=== PATIENT | female | born 1965 | race Caucasian/White ===

== ENCOUNTER 2018-03-03 07:00 | Day surgery (SDC) | payer OTHER ==
[2018-02-28 10:54] VITALS: BMI 22.9
[2018-03-03 07:48] VITALS: BP 153/67; TEMP 98.6
--- NOTE | 2018-03-03 09:13 | RAD ---
CERVICAL SPINE MYELOGRAM LUMBAR SPINE MYELOGRMA: DATE: 03/03/18. COMPARISON: 11/01/10. HISTORY: Cervical and lumbar radiculopathy. FINDINGS: Informed consent was obtained prior to the procedure. Life Support Technician frontal and lateral imaging of the lumbar spine demonstrates a mild degree of levoscoliosis. T here is prominent disk space narrowing at L2-3, L3-4, and L4-5 with degenerative end plate change. T here is also disk space narrowing at the L5-S1 level with posterior osteophyte. There is multilevel bilateral facet hypertrophy. Cervical spine gear nicker imaging demonstrates anterior diskectomy and fusio n hardware at the c4-5 level . There is also posterior fusion hardware at C4-5. There is multilevel cervical disk osseous fusion including C4-5, C5-6, and C6-7 with exaggerated kyphosis. The patient was placed on the fluoroscopic table in the oblique prone position and the skin overlying the lower lumbar spine was prepped and draped in normal sterile fashion. With intermittent fluoroscopic guidance, a 22-gauge spinal needle was advanced into the thecal sac at the L4-5 level and removal of the stylette yields clear cerebrospinal fluid. Approximately 0 cc of Isovue 300 was then injected, filling the thecal sac and outlining nerve roots of the cauda equina. The patient's head was tilted down to extend some of the contrast media into the cervical region. Th e needle was removed. The patient tolerated the procedure well and was sent to the CT scanner for ce rvical spine and lumbar spine CT myelogram. IMPRESSION: Successful cervical spine and lumbar spine myelogram with CT myelogram to follow. Postoperative and degenerative changes within the cervical and lumbar spine as detailed above. POS: PAZ
--- NOTE | 2018-03-03 10:19 | CT ---
CT MYELOGRAM OF THE LUMBAR SPINE: DATE: 03/03/18. COMPARISON: None. HISTORY: Lumbar radiculopathy. TECHNIQUE: Serial axial CT imaging is obtained at 2.5 mm intervals from lower thoracic spine through inferior as pect of sacrum with intrathecal contrast media. Coronal and sagittal reformatted imaging obtained. FINDINGS: There is a mild degree of degenerative levoscoliosis within the lumbar spine. There is no significant anterolisthesis or retrolisthesis seen. T11-12: Disk bulge present with partial effacement of ventral thecal sac and mild central canal sten osis. Mild bilateral facet hypertrophy with mild bilateral neural foraminal stenosis. T12-L1: No significant central canal or neural foraminal stenosis. L1-2: Mild disk space narrowing. Mild facet hypertrophy bilaterally. No significant central canal or neural foraminal stenosis. L2-3: There is prominent disk space narrowing and degenerative end plate change with marked end plat e degenerative sclerotic change laterally on the right. There is lateral right-sided osteophyte form ation. There is bilateral facet hypertrophy. There is moderate-severe right neural foraminal stenos is. Disk-osteophyte complex causes moderate central canal stenosis. There is mild left neural ash inal stenosis. L3-4: There is disk space narrowing and degenerative end plate change with bilateral facet hypertrop hy, prominent on the right. No central canal stenosis. Mild left neural foraminal stenosis and mode rate/severe right neural foraminal stenosis. L4-5: There is disk space narrowing and degenerative end plate change with a disk-osteophyte complex . There is bilateral facet hypertrophy. There is severe left neural foraminal stenosis and moderate right neural foraminal stenosis. The patient is status post laminectomy with no central canal steno sis. L5-S1: Disk space narrowing and degenerative end plate change with disk-osteophyte complex and vacuu m disk. Mild central canal stenosis. Prominent bilateral facet hypertrophy with osteophyte encroach ment on the neural foramina and moderate/severe bilateral neural foraminal stenosis, left greater sissy n right. There is a prominent perineural sleeve cyst in the region of the S2 neural foramen on the right conta ining intrathecal contrast media. There is no acute fracture. No worrisome lytic or blastic bone lesion. The imaged retroperitoneal structures demonstrate no acute findings. IMPRESSION: Prominent multilevel degenerative change within the lumbar spine with associated central canal and ne ural foraminal stenosis as documented above. POS: PAZ
--- NOTE | 2018-03-03 10:30 | CT ---
CERVICAL SPINE CT MYELOGRAM: Date: 03/03/18 COMPARISON: 11/01/10. HISTORY: Cervical stenosis, prior cervical spine surgery, upper extremity radiculopathy. TECHNIQUE: Following the intrathecal administration of Isovue-300, serial axial CT imaging is obtained at 2.5 mm intervals from skull base through upper chest. Coronal and sagittal reformatted imaging obtained. FINDINGS: The craniocervical junction appears intact. There is prominent degenerative change present at the C1-2 articulation with interspace narrowing, long bchondral sclerosis, and subchondral cystic change, especially on the right, markedly progressed sinc e the prior exam. There is prominent degenerative pannus formation posterior to the dens. There is os teophyte encroachment in the region of the C1-2 neural foramen bilaterally, right greater than left, severe and new when compared to the prior examination. On the axial imaging, there is mild mass effect on the ventral aspect of the thecal sac right of midl ine secondary to prominent new degenerative pannus formation. C2-3: There is disc space narrowing with bilateral facet and uncovertebral osteophyte formation. There is m ild left and moderate/severe right neural foraminal stenosis. There is mild central canal stenosis. C3-4: There is disc space narrowing with bilateral facet hypertrophy, left greater than right. Moderate lef t and mild right neural foraminal stenosis. Mild central canal stenosis. C4-5: Anterior diskectomy and fusion hardware present. Posterior bilateral pedicle screws with vertically o riented interlocking rods noted. Facet and uncovertebral osteophyte formation noted bilaterally, righ t greater than left. No significant central canal stenosis. Mild bilateral neural foraminal stenosis. C5-6: Osseous fusion at intervertebral disc level noted. Right-sided fusion screw traverses the right-sided facet joint. Mild right neural foraminal stenosis. No central canal or left neural foraminal stenosis. C6-7: Hemilaminectomy noted posteriorly on the left. There is osseous fusion at the intervertebral disc. No osseous cause of significant central canal and neural foraminal stenosis. C7-T1: Anterolisthesis of C7 on T1 noted, measuring approximately 6.0 mm, new. There is severe bilateral fac et hypertrophy, worsened, right greater than left, with osteophyte encroachment on bilateral neural f oramina and severe bilateral neural foraminal stenosis. There is pseudo disc bulge on the basis of an terolisthesis, with effacement of the thecal sac, and a moderate degree of associated central canal s tenosis. T1-2: Severe bilateral neural foraminal stenosis on the basis of facet hypertrophy. Disc osteophyte complex causes moderate central canal stenosis. T2-3: Prominent bilateral facet hypertrophy with moderate/severe bilateral neural foraminal stenosis, left greater than right. Mild central canal stenosis on the basis of disc osteophyte complex. T3-4: Severe right-sided neural foraminal stenosis on the basis of facet hypertrophy. Disc bulge causes mil d central canal stenosis. No worrisome lytic or blastic bone lesion. Posterior cerclage wire overlies posterior elements at C5, C6, and C7. IMPRESSION: Prominent multilevel degenerative change with associated areas of central canal and neural foraminal stenosis as documented above. Findings have progressed significantly since the 2011 exam as detailed above. POS: PAZ
[2018-03-03] MEDS ORDERED: Iopamidol-M 300 61% 15 ML VIAL ONE (11:03)
== END 2018-03-03 09:50 | disposition home or self-care (01) ==
LOC: RAD 07:00
PROVIDERS: ATTEND Neurological Surgery
DX: M48.061 Spinal stenosis, lumbar region without neurogenic claudication (principal); M48.02 Spinal stenosis, cervical region; M47.22 Other spondylosis with radiculopathy, cervical region; M47.26 Other spondylosis with radiculopathy, lumbar region
CPT/HCPCS: 62305; 72126; 72132

== ENCOUNTER 2018-04-22 14:00 | Inpatient (IN) | payer OTHER ==
[2018-04-28] MEDS ORDERED: PHENYLEPHRINE-NS 100 MCG/ML 10 ML SYRINGE ONE (09:42)
[2018-04-28] MEDS ORDERED: Glycopyrrolate 0.2 MG/ML 5 ML SYRINGE ONE (09:42)
[2018-04-28] MEDS ORDERED: Ondansetron HCl/PF 4 MG/2 ML Vial ONE (09:42)
[2018-04-28] MEDS ORDERED: PROPOFOL 200 MG/20 ML VIAL ONE (09:42)
[2018-04-28] MEDS ORDERED: ePHEDrine/0.9% NaCl/PF SYRINGE 50 mg/10 ml ONE (09:42)
[2018-04-28] MEDS ORDERED: Dexamethasone 20 MG/5 ML VIAL ONE (09:42)
[2018-04-28] MEDS ORDERED: PROVENTIL INHALER 6.7 G (200 INHALATIONS) ONE (09:42)
[2018-04-28] MEDS ORDERED: Lidocaine 1% PF 5 ML VIAL ONE (09:42)
[2018-04-28] MEDS ORDERED: CEFAZOLIN/Water 2 GM/20 ML SYRINGE ONE (10:14)
[2018-04-28] MEDS ORDERED: Levofloxacin 500 mg/D5W 100 ml Premix Bag ONE (10:15)
[2018-04-28] MEDS ORDERED: Clindamycin/D5W 900 mg/50 ml Premix Bag ONE (10:15)
[2018-04-28] MEDS ORDERED: Midazolam HCl 2 mg/2 ml Vial ONE (10:48)
[2018-04-28] MEDS ORDERED: Sodium Chloride 0.9% 10 ML ONE (12:33)
[2018-04-28] MEDS ORDERED: Bacitracin Zinc Ointment 30 gm TUBE ONE (12:33)
[2018-04-28] MEDS ORDERED: Fentanyl 100 MCG/2 ML VIAL ONE ×2 (13:15→16:14)
[2018-04-28] MEDS ORDERED: Albuterol Sulfate HFA (OR ONLY) ONE (14:01)
[2018-04-28] MEDS ORDERED: HYDROmorphone 0.5 MG/0.5 ML SYRINGE ONE ×2 (16:00→16:06)
[2018-04-28] MEDS ORDERED: Acetaminophen 500 MG TAB PO PRN (16:35)
[2018-04-28] MEDS ORDERED: Promethazine 25 MG TAB PO PRN (16:37)
[2018-04-28] MEDS ORDERED: Milk Of Magnesia 30 ML UDCUP PO PRN (16:37)
[2018-04-28] MEDS ORDERED: Mag-Al 1200 mg/1200 mg/30 ML UDCUP PO PRN (16:37)
[2018-04-28] MEDS ORDERED: HYDROcodone/Acetaminophen 10/325 mg Tablet PO PRN (16:37)
[2018-04-28] MEDS ORDERED: Morphine 4 MG/ML Carpuject SLOW IVP PRN (16:37)
[2018-04-28] MEDS ORDERED: diphenhydrAMINE 50 MG/ML VIAL IVP PRN (16:37)
[2018-04-28] MEDS ORDERED: traMADol HCl 50 MG TAB PO PRN ×2 (16:37)
[2018-04-28] MEDS ORDERED: Promethazine HCl 25 MG/ML VIAL IM PRN (16:37)
[2018-04-28] MEDS ORDERED: Ondansetron HCl/PF 4 MG/2 ML Vial IVP PRN (16:37)
[2018-04-28] MEDS ORDERED: Promethazine HCl 12.5 MG SUPP PR PRN (16:37)
[2018-04-28] MEDS ORDERED: diphenhydrAMINE 25 MG CAP PO PRN (16:37)
[2018-04-28 17:12] VITALS: BMI 25.1
[2018-04-28] MEDS: Sodium Chloride 0.9% 1,000 ML IV SCH (17:12)
[2018-04-28] MEDS: Morphine 4 MG/ML VIAL SLOW IVP PRN ×2 (18:34→21:34)
--- NOTE | 2018-04-28 19:38 | OP ---
DATE OF PROCEDURE: 04/28/2018 SURGEON: Johnny Soni M.D. DRY CLEANER HAND: Mihir Benson PA-C. PROCEDURE: Exploration spinal fusion, anterior cervical discectomy C7-T1, interbody arthrodesis, int ravertebral biomechanical device, local morselized autograft, demineralized bone matrix, anterior tit anium instrumentation C7-T1; posterior approach and exploration spinal fusion, removal of hardware, p osterior laminectomy C7 and T1, posterolateral arthrodesis, lateral mass screws, demineralized bone m atrix, local morselized autograft C7-T1. PROCEDURE IN DETAIL: The patient brought to the operating room and intubated. She was positioned long pine with the head in modest extension on a gel-filled donut. Incision was made in the right precerv ical area and dissecting medial to the sternocleidomastoid muscle. We identified the anterior cervic al spine and was cleared this with the C7-T1 level as we explored the fusion above and was quite heber d. We placed distraction across C7-T1 in size intervertebral disk and placed distraction across this interspace. The disc itself was removed and the spinal cord completely decompressed. The bony endp lates were decorticated for the purpose of arthrodesis and appropriately sized intravertebral biomech anical PEEK device was brought into the field, filled with demineralized bone matrix and local morsel ized autograft, and tapped into place securely at C7-T1. Next, an anterior plate was brought in the field and secured to C7-T1 using two 14 mm screws at each level. The wound was then extensively irri gated, immaculate hemostasis was secured, and the wound closed in anatomic layers over a drain. The patient was then fixed in the toi head of biology rolled in the prone position on gel-filled chest rolls with the head fixed in a neutral position. Posterior cervical region was exposed, exposing th e C7-T1 region. At the inferior aspect of C7 was an obvious intralaminar wire that extended up to th e C6 level. We explored C6-C7 and was found to be solid, and we removed the wire without difficulty. The wire was certainly lying over the C7 region and so no laminectomy could be performed with this in place. Next, we performed a complete T1 and complete C7 laminectomy, completely decompressing the C7-T1 interspace. Next, lateral mass screws were placed at right C7, right T1. A aron was secured b etween the screws, connected by nuts which were final tightened. The wound was extensively irrigated , immaculate hemostasis was secured. A combination of demineralized bone and local morselized autogr aft was laid over the laminar and posterolateral surfaces for the purpose of arthrodesis. Vancomycin powder was applied and the wound was closed in anatomic layers.
[2018-04-28] MEDS: Bupropion 150 MG SR TAB PO SCH (20:31)
[2018-04-28] MEDS: DULoxetine 60 MG CAP PO SCH (20:31)
[2018-04-28] MEDS: Clindamycin/D5W 900 MG in Premix Bag 1 BAG IVPB SCH (20:31)
[2018-04-28] MEDS: METHadone HCl 10 MG TAB PO SCH (20:31)
[2018-04-28] MEDS: HYDROcodone/Acetaminophen 10/325 mg Tablet PO PRN (22:56)
[2018-04-29] MEDS: Morphine 4 MG/ML VIAL SLOW IVP PRN (01:02)
[2018-04-29] MEDS: Sodium Chloride 0.9% 1,000 ML IV SCH ×2 (05:54→14:36)
[2018-04-29] MEDS: Clindamycin/D5W 900 MG in Premix Bag 1 BAG IVPB SCH ×3 (05:58→20:57)
[2018-04-29] MEDS: HYDROcodone/Acetaminophen 10/325 mg Tablet PO PRN ×3 (06:01→16:43)
--- NOTE | 2018-04-29 07:42 | PRG ---
DATE OF SERVICE: 04/29/2018 SUBJECTIVE: The patient is a 53-year-old female status post C7-T1 anterior and posterior d ecompression and fusion. She is postop day #1. Overnight, the patient had only 30 mL of output from the SONIA drain. We will plan to remove today. The patient has had some pain control issues overnight requiring IV pain medication intermittently. She reports that she is feeling better this morning, b ut I believe she would benefit from additional night with us for pain control and advancing mobilizat ion and diet. She is ambulating short distance to the bedside commode and tolerating a regular diet. We will continue to monitor her progress and possibly plan for discharge in the morning.
[2018-04-29] MEDS: METHadone HCl 10 MG TAB PO SCH ×2 (08:04→20:58)
[2018-04-29] MEDS: Bupropion 150 MG SR TAB PO SCH ×2 (08:04→20:57)
[2018-04-29] MEDS: DULoxetine 60 MG CAP PO SCH ×2 (08:05→20:58)
[2018-04-29] MEDS: tiZANidine HCl 4 MG TAB PO PRN ×3 (08:05→21:14)
[2018-04-30] MEDS: HYDROcodone/Acetaminophen 10/325 mg Tablet PO PRN ×2 (03:15→08:53)
[2018-04-30] MEDS: Clindamycin/D5W 900 MG in Premix Bag 1 BAG IVPB SCH (05:58)
[2018-04-30 08:23] VITALS: BP 115/68; TEMP 98
[2018-04-30] MEDS: METHadone HCl 10 MG TAB PO SCH (08:48)
[2018-04-30] MEDS: DULoxetine 60 MG CAP PO SCH (08:49)
[2018-04-30] MEDS: Bupropion 150 MG SR TAB PO SCH (08:50)
[2018-04-30] MEDS: tiZANidine HCl 4 MG TAB PO PRN (10:03)
--- NOTE | 2018-04-30 13:45 | DIS ---
HOSPITAL COURSE: This is a 53-year-old female status post C7-T1 anterior and posterior dec ompression and fusion for spondylolisthesis and cervical stenosis. Today is postoperative day #2. T he patient is doing much better. Her pain is well controlled with p.o. medications, she is toleratin g regular diet, and voiding appropriately. She has been ambulatory throughout the department. Her d ressings remained dry and her anterior incision is soft. We will plan to dismiss to home later today . I have discussed home care precautions and reasons to reach out to us sooner. Patient was prescri bed hydrocodone, Zanaflex, Keflex.
== END 2018-04-30 11:17 | disposition home or self-care (01) | DRG 455 ==
LOC: SURG B 04-28 09:18 → T4-A 04-28 16:31
PROVIDERS: ADMIT Neurological Surgery; ATTEND Neurological Surgery
PROC: 0RG40A0 Fusion of Cervicothoracic Vertebral Joint with Interbody Fusion Device, Anterior Approach, Anterior Column, Open Approach (ICD-10-PCS; principal; 2018-04-28)
PROC: 0RG1071 Fusion of Cervical Vertebral Joint with Autologous Tissue Substitute, Posterior Approach, Posterior Column, Open Approach (ICD-10-PCS; 2018-04-28)
PROC: 0RB50ZZ Excision of Cervicothoracic Vertebral Disc, Open Approach (ICD-10-PCS; 2018-04-28)
DX: M47.13 Other spondylosis with myelopathy, cervicothoracic region (principal); M48.03 Spinal stenosis, cervicothoracic region; I10 Essential (primary) hypertension; F32.9 Major depressive disorder, single episode, unspecified
CPT/HCPCS: 76001; 80048; 85027; 93005; 93010; A4216; C1713; C1768; C1776; G8978-GP-CK; G8979-GP-CI; J0131; J1100; J1170; J1956; J2001; J2250; J2270; J2405; J2704; J3010; J3370; J3490

== ENCOUNTER 2018-04-25 15:10 | Outpatient (CLI) | payer OTHER ==
[2018-04-25 15:38] LABS: Hemoglobin 13.6 g/dL (12.0-16.0); Mean Corpuscular HGB CONC 33.2 g/dL (32.0-36.0); Mean Corpuscular Hemoglobin 31.7 pg (27.0-31.0); Mean Corpuscular Volume 95.5 fL (78.0-98.0); Mean Platelet Volume 6.4 fL (7.4-10.4); Platelet Count 340 thou/uL (130-400); RBC Distribution Width 12.6 % (11.5-14.5); Red Blood Cell (RBC) Count 4.29 mill/uL (4.20-5.40); White Blood Cell (WBC) Count 7.3 thou/uL (4.8-10.8)
[2018-04-25 15:55] LABS: Anion Gap 13 mmol/L (10-20); BUN (Urea Nitrogen) 18 mg/dL (9.8-20.1); Calc. Creatinine Clearance 0 mL/min (70-130); Calcium 9.1 mg/dL (7.8-10.44); Carbon Dioxide 30 mmol/L (22-29); Chloride 102 mmol/L (98-107); Estimated GFR-MDRD 53; Glucose 92 mg/dL (70-105); Potassium 4.6 mmol/L (3.5-5.1); Sodium 140 mmol/L (136-145)
== END 2018-04-25 15:11 | disposition home or self-care (01) ==
LOC: LABBT 15:10
PROVIDERS: ATTEND Neurological Surgery
DX: Z01.818 Encounter for other preprocedural examination (principal); M47.892 Other spondylosis, cervical region
CPT/HCPCS: 80048; 85027; 93005; 93010

== ENCOUNTER 2019-11-11 14:06 | Outpatient (CLI) | payer OTHER ==
--- NOTE | 2019-11-11 14:45 | RAD ---
LEFT HIP 2 VIEWS: Date: 11/11/2019 HISTORY: Left hip pain. FINDINGS: There is severe joint space narrowing, particular pronounced along the superior aspect of the joint s pace. There is subchondral cystic formation of the femoral head associated with this. There is fairly prominent head and neck ring osteophyte changes. Femoral head maintains a relatively normal spherica l contour. IMPRESSION: Severe arthritic changes of the hip. POS: TPC
== END 2019-11-11 14:07 | disposition home or self-care (01) ==
LOC: RAD 14:06
PROVIDERS: ATTEND Nurse Practitioner Family
DX: M25.552 Pain in left hip (principal); M16.12 Unilateral primary osteoarthritis, left hip
CPT/HCPCS: 80307; 80326; 80331; 80334; 80337; 80341; 80344; 80346; 80348; 80353; 80354; 80355; 80357; 80358; 80359; 80360; 80361; 80364; 80365; 80366; 80367; 80368; 80370; 80371; 80372; 80377

== ENCOUNTER 2020-05-05 13:15 | Inpatient (IN) | payer OTHER ==
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
[2020-07-06 14:14] LABS: Bacteria/HPF None Seen HPF (None Seen); Bilirubin Negative (Negative); Blood, Urine Negative (Negative); Clarity Clear (Clear); Glucose, Urine (Dipstick) Normal (Negative); Ketone, Urine Negative (Negative); Leukocyte Negative Leu/uL (Negative); Nitrite Negative (Negative); Protein, Urine (Dipstick) Negative (Neg-Trace); RBC/HPF 0-3 HPF (0-3); Specific Gravity, Urine 1.012 (1.002-1.036); Squamous Epithelial 0-3 HPF (0-3); Urobilinogen Normal mg/dL (Less than 2); WBC/HPF 0-3 HPF (0-3)
[2020-07-06 14:18] LABS: #Eosinphils 0.5 thou/uL (0.0-0.7); #Lymphocytes 1.9 thou/uL (1.20-3.40); #Monocytes 0.5 thou/uL (0.11-0.59); #Neutrophils 3.9 thou/uL (1.40-6.50); %Basophils 0.5 % (0.0-1.0); %Eosinophils 7.8 % (0.0-10.0); %Monocytes 6.9 % (0.0-10.0); %Neutrophils 56.8 % (42.0-75.0); Hemoglobin 14.3 g/dL (12.0-16.0); Mean Corpuscular HGB CONC 32.7 g/dL (32.0-36.0); Mean Corpuscular Hemoglobin 32.2 pg (27.0-31.0); Mean Corpuscular Volume 98.5 fL (78.0-98.0); Mean Platelet Volume 7.8 fL (7.4-10.4); Platelet Count 279 thou/uL (130-400); RBC Distribution Width 12.3 % (11.5-14.5); Red Blood Cell (RBC) Count 4.44 mill/uL (4.20-5.40); White Blood Cell (WBC) Count 6.9 thou/uL (4.8-10.8)
[2020-07-06 14:29] LABS: Anion Gap 15 mmol/L (10-20); BUN (Urea Nitrogen) 21 mg/dL (9.8-20.1); Calc. Creatinine Clearance 0 mL/min (70-130); Calcium 9.5 mg/dL (7.8-10.44); Carbon Dioxide 30 mmol/L (22-29); Chloride 99 mmol/L (98-107); Estimated GFR-MDRD 58; Glucose 102 mg/dL (70-105); INR-International Normal Ratio 0.9; Potassium 4.8 mmol/L (3.5-5.1); Prothrombin Time 12.5 sec (12.0-14.7); Sodium 139 mmol/L (136-145)
[2020-07-07 12:47] LABS: SARS-CoV-2 MS2 Positive; SARS-CoV-2 N Gene Negative; SARS-CoV-2 S Gene Negative; SARS-CoV-2 by NAA Not Detected (NotDetected); SARS-CoV-2 orf1ab Negative
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
[2020-07-08 12:28] VITALS: BMI 21.2
[2020-07-11] MEDS ORDERED: Vancomycin 1 GM/200 ML BAG ONE (07:40)
[2020-07-11] MEDS ORDERED: Tranexamic Acid 1,000 MG/10 ML VIAL ONE ×3 (07:40→11:52)
[2020-07-11] MEDS ORDERED: Levofloxacin 500 mg/D5W 100 ml Premix Bag ONE (07:40)
[2020-07-11] MEDS ORDERED: Sodium Chloride 0.9% 100 ML ONE ×2 (07:40→08:15)
[2020-07-11] MEDS ORDERED: Midazolam HCl 2 mg/2 ml Vial ONE (08:24)
[2020-07-11] MEDS ORDERED: Fentanyl 100 MCG/2 ML VIAL ONE ×2 (08:25→09:06)
[2020-07-11] MEDS ORDERED: Lidocaine 2% Jelly 5 ML TUBE ONE (09:06)
[2020-07-11] MEDS ORDERED: Acetaminophen 325 MG TAB PO PRN ×2 (09:11→13:18)
[2020-07-11] MEDS ORDERED: Ropivacaine 0.2% HCl/PF 20 ML ONE (09:11)
[2020-07-11] MEDS ORDERED: Phenylephrine 10 MG/ML VIAL ONE (09:12)
[2020-07-11] MEDS ORDERED: Zolpidem Tartrate 5 MG TAB PO PRN ×2 (09:15→13:18)
[2020-07-11] MEDS ORDERED: diphenhydrAMINE 50 MG/ML VIAL IVP PRN (09:15)
[2020-07-11] MEDS ORDERED: traMADol HCl 50 MG TAB PO PRN ×3 (09:15→13:18)
[2020-07-11] MEDS ORDERED: Bupivacaine 0.25% 10 ML VIAL EPIDURAL PRN (09:15)
[2020-07-11] MEDS ORDERED: Promethazine HCl 25 MG/ML VIAL IM PRN ×2 (09:15→10:45)
[2020-07-11] MEDS ORDERED: Naloxone HCl 0.4 mg/ml Vial IV PRN (09:15)
[2020-07-11] MEDS ORDERED: Hydrocerin (Eucerin) Cream 120 gm Jar TOP PRN (09:15)
[2020-07-11] MEDS ORDERED: HYDROcodone/Acetaminophen 5/325 mg Tablet PO PRN (09:15)
[2020-07-11] MEDS ORDERED: diphenhydrAMINE 50 MG/ML VIAL IM PRN (09:15)
[2020-07-11] MEDS ORDERED: Promethazine HCl 25 MG SUPP PR PRN (09:15)
[2020-07-11] MEDS ORDERED: diphenhydrAMINE 25 MG CAP PO PRN ×2 (09:15→13:18)
[2020-07-11] MEDS ORDERED: Naloxone HCl 0.4 mg/ml Vial IVP PRN (09:15)
[2020-07-11] MEDS ORDERED: Ondansetron PF 4 MG/2 ML Vial IVP PRN ×2 (09:15→13:18)
[2020-07-11] MEDS ORDERED: Promethazine HCl 25 MG/ML VIAL SLOW IVP PRN ×2 (10:45→13:18)
[2020-07-11] MEDS ORDERED: Ondansetron HCl/PF 4 MG/2 ML Vial IVP PRN (10:45)
[2020-07-11] MEDS ORDERED: Tranexamic Acid 1,000 MG in Sodium Chloride 0.9% 100 ML IVPB SCH ×2 (11:45→13:18)
--- NOTE | 2020-07-11 12:12 | RAD ---
EXAM: 2 views of the left hip HISTORY: Left hip arthroplasty COMPARISON: 11/11/2019 FINDINGS: 2 views of the left hip shows the patient is status post left hip arthroplasty without jluis hardware lucency or fracture. Air in the soft tissues is from recent surgery. IMPRESSION: Status post left hip arthroplasty without evidence of complication.
[2020-07-11] MEDS ORDERED: HYDROcodone/Acetaminophen 10/325 mg Tablet PO PRN ×2 (13:18)
[2020-07-11] MEDS ORDERED: Ketorolac Tromethamine 30 MG/ML VIAL IVP SCH (13:18)
[2020-07-11] MEDS ORDERED: Fentanyl 100 MCG/2 ML VIAL SLOW IVP PRN ×2 (13:18)
[2020-07-11] MEDS ORDERED: Mirtazapine 15 MG TAB PO PRN (13:18)
[2020-07-11] MEDS ORDERED: Lidocaine 1.5% w/Epi 1:200K 30 ML VIAL (Epid Use) ONE (14:08)
[2020-07-11] MEDS ORDERED: METHadone HCl 10 MG TAB PO SCH (15:00)
[2020-07-11] MEDS: Ketorolac Tromethamine 30 MG/ML VIAL IVP SCH ×3 (15:20→23:58)
[2020-07-11] MEDS: Sodium Chloride 0.9% 1,000 ML IV SCH (15:21)
[2020-07-11] MEDS: HYDROcodone/Acetaminophen 5/325 mg Tablet PO PRN (17:23)
[2020-07-11] MEDS: Bupropion 150 MG SR TAB PO SCH (20:37)
[2020-07-11] MEDS: Aspirin 81 mg Enteric Coated Tablet PO SCH (20:37)
[2020-07-11] MEDS: DULoxetine 60 MG CAP PO SCH (20:37)
[2020-07-11] MEDS ORDERED: Vancomycin 1 GM in Premix Bag 1 BAG IVPB SCH (21:00)
[2020-07-12] MEDS: Sodium Chloride 0.9% 1,000 ML IV SCH ×3 (01:00→21:31)
[2020-07-12] MEDS: fentaNYL Citrate/PF 500 MCG, Bupivacaine 10 ML in Sodium Chloride 0.9% 80 ML EPIDURAL SCH ×2 (03:53→19:03)
[2020-07-12 05:28] LABS: Hemoglobin 9.6 g/dL (12.0-16.0); Mean Corpuscular Hemoglobin 30.9 pg (27.0-31.0); Mean Corpuscular Volume 98.1 fL (78.0-98.0); White Blood Cell (WBC) Count 9.5 thou/uL (4.8-10.8)
[2020-07-12 05:29] LABS: Mean Corpuscular HGB CONC 31.5 g/dL (32.0-36.0); Mean Platelet Volume 7.5 fL (7.4-10.4); Platelet Count 166 thou/uL (130-400); RBC Distribution Width 12.3 % (11.5-14.5)
[2020-07-12] MEDS: Ketorolac Tromethamine 30 MG/ML VIAL IVP SCH ×4 (06:38→23:49)
[2020-07-12] MEDS: DULoxetine 60 MG CAP PO SCH ×2 (08:36→21:30)
[2020-07-12] MEDS: Senokot S 8.6-50 MG TAB PO SCH ×2 (08:36→21:30)
[2020-07-12] MEDS: Ferrous Gluconate 324 MG TAB PO SCH ×2 (08:37→17:01)
[2020-07-12] MEDS: Aspirin 81 mg Enteric Coated Tablet PO SCH ×2 (08:37→21:30)
[2020-07-12] MEDS: Multivitamin W/ Minerals 1 TAB PO SCH (08:37)
--- NOTE | 2020-07-12 08:53 | OP ---
DATE OF PROCEDURE: 07/11/2020 AUTOMOTIVE BRAKE ADJUSTER: Salvatore Gold PA-C. The project construction assistant manager co-surgeon was present through the entire procedure and was responsible for providing exposure, tissue retraction, and any necessary limb or tissue manipulation required to obtain necessary reduction or hardware placement. The project construction assistant manager co-surgeon also provided bleeding control, tissue closure, and suturing in conjunction with the primary surgeon. ANESTHESIA: General plus epidural. PREOPERATIVE DIAGNOSIS: Degenerative arthritis, left hip. POSTOPERATIVE DIAGNOSIS: Degenerative arthritis, left hip. PROCEDURE PERFORMED: Left total hip replacement with uncemented [place] Trident II Tritanium acetabular shell 56 mm with X3 polyethylene insert and uncemented [place] Accolade II femoral stem size #6 with 132-degree neck angle trunnion and 36 mm - 5 mm neck length delta ceramic femoral head. DESCRIPTION OF PROCEDURE: After satisfactory anesthesia was induced in supine position, sequential compression device was placed on the nonoperative leg throughout the procedure. The patient was placed in the lateral decubitus position and this position held with hip positioning device. The patient's left hip was then prepped and draped in routine sterile fashion. The hip was approached through a curvilinear incision centered over the greater trochanter, carried down through the subcutaneous tissues. Bleeding points were controlled with Bovie cautery. IT band and gluteal fascia was split in line with the skin incision. A direct lateral approach to the hip joint was accomplished by dividing the anterior third of the gluteus medius and minimus tendons with Bovie cautery and reflecting this as a single flap anteromedially along with the vastus lateralis. Anterior capsulectomy was performed. The hip was dislocated anteriorly. There was marked degenerative arthritis of the hip with large areas of exposed bone and also acetabular cyst. Femoral neck was osteotomized with an oscillating saw using a trial prosthesis as a guide. Acetabulum was exposed and cleaned of all soft tissue debris and rim osteophytes. It was reamed down to bleeding subchondral bone to a total of 56 mm. Acetabular cyst was curetted out. It was felt that a 56 mm Trident II outer shell could be placed in a press-fit fashion. A small amount of morcellized bone graft obtained from reaming the acetabulum and was placed in the cyst and permanent acetabular shell was then hammered in position. There was good fit and stability of the outer shell. The permanent X3 polyethylene liner was then snapped in position and the proximal femur exposed. It was opened with a box osteotome and then rasped in sequence to accept a #6 Accolade II femoral rasp. Trial reduction with 132-degree neck angle trunnion and the -5 mm neck length 36 mm hip femoral head gave appropriate size, fit, and stability. The hip was again dislocated anteriorly and the trial components were removed. The permanent #6 Accolade II femoral stem was then hammered into position. There was again good fit and stability. The permanent 36 mm diameter -5 mm neck length delta ceramic femoral head was then placed on the trunnion and the hip again reduced and found to be stable. The wound was copiously irrigated with pulsatile lavage. The abductors were repaired with interrupted #2 Vicryl. IT band and gluteal fascia were closed with interrupted #2 Vicryl and running #2 Quill. Subcutaneous tissues were closed with 0 Quill suture and the skin closed with running subcuticular 3-0 Monoderm and SurgiSeal skin adhesive. Sterile dressing was applied. The patient was turned to supine position and a pillow placed between her legs. She was awakened and taken to the recovery room in stable condition. A sequential compression device was applied to the operated leg. There were no apparent intraoperative complications. The estimated blood loss was 200 mL. Job ID: [id number] MTDD
[2020-07-12] MEDS ORDERED: FLU VACC QS2020-21(6MOS UP)/PF 60 MCG/0.5 ML SYRINGE IM ONE (09:00)
[2020-07-12] MEDS: Bupropion 150 MG SR TAB PO SCH ×2 (11:21→21:30)
[2020-07-12] MEDS ORDERED: Mirtazapine 15 MG TAB PO PRN (15:57)
[2020-07-13] MEDS: Ketorolac Tromethamine 30 MG/ML VIAL IVP SCH (05:22)
[2020-07-13] MEDS: Sodium Chloride 0.9% 1,000 ML IV SCH ×2 (05:27→09:54)
[2020-07-13 05:50] LABS: Hemoglobin 8.9 g/dL (12.0-16.0); Mean Corpuscular HGB CONC 32.2 g/dL (32.0-36.0); Mean Corpuscular Hemoglobin 32.1 pg (27.0-31.0); Mean Corpuscular Volume 99.6 fL (78.0-98.0); Mean Platelet Volume 7.8 fL (7.4-10.4); Platelet Count 164 thou/uL (130-400); RBC Distribution Width 12.3 % (11.5-14.5); Red Blood Cell (RBC) Count 2.76 mill/uL (4.20-5.40)
[2020-07-13] MEDS: Multivitamin W/ Minerals 1 TAB PO SCH (09:53)
[2020-07-13] MEDS: Senokot S 8.6-50 MG TAB PO SCH (09:53)
[2020-07-13] MEDS: Bupropion 150 MG SR TAB PO SCH (09:53)
[2020-07-13] MEDS: Aspirin 81 mg Enteric Coated Tablet PO SCH (09:53)
[2020-07-13] MEDS: Ferrous Gluconate 324 MG TAB PO SCH (09:53)
[2020-07-13] MEDS: DULoxetine 60 MG CAP PO SCH (09:53)
[2020-07-13] MEDS: HYDROcodone/Acetaminophen 5/325 mg Tablet PO PRN (12:35)
[2020-07-13 13:00] VITALS: BP 104/63; TEMP 98.3
== END 2020-07-13 14:35 | disposition home or self-care (01) | DRG 470 ==
LOC: SURG A 07-11 07:04 → SJJU 07-11 15:19
PROVIDERS: ADMIT Orthopaedic Surgery; ATTEND Orthopaedic Surgery
PROC: 0SRB04A Replacement of Left Hip Joint with Ceramic on Polyethylene Synthetic Substitute, Uncemented, Open Approach (ICD-10-PCS; principal; 2020-07-08)
DX: M16.0 Bilateral primary osteoarthritis of hip (principal); G89.29 Other chronic pain; M54.9 Dorsalgia, unspecified; I10 Essential (primary) hypertension; Z20.828 Contact with and (suspected) exposure to other viral communicable diseases; F32.9 Major depressive disorder, single episode, unspecified; M54.2 Cervicalgia; Z88.0 Allergy status to penicillin; Z79.899 Other long term (current) drug therapy; Z79.1 Long term (current) use of non-steroidal anti-inflammatories (NSAID); Z28.21 Immunization not carried out because of patient refusal
CPT/HCPCS: 36415; 80048; 81001; 85025; 85027; 85610; 86850; 86900; 86901; 87081; 87086; 87635; 94640; J1885; J1956; J2001; J2250; J2370; J2795; J3010; J3370; J3490; J7620; U0003

== ENCOUNTER 2020-07-06 07:57 | Outpatient (CLI) | payer OTHER ==
--- NOTE | 2020-07-06 17:33 | EKG ---
Test Reason : PREOP Blood Pressure : / mmHG Vent. Rate : 073 BPM Atrial Rate : 073 BPM P-R Int : 144 ms QRS Dur : 082 ms QT Int : 420 ms P-R-T Axes : 032 057 071 degrees QTc Int : 462 ms Normal sinus rhythm Normal ECG Confirmed by DR. Jose Carlos CORTEZ ([id number]) on 07/06/2020 5:32:50 PM Referred By: YANDY Confirmed By:DR. Jose Carlos CORTEZ
== END 2020-07-06 07:58 | disposition home or self-care (01) ==
LOC: LABBT 07:57
PROVIDERS: ATTEND Orthopaedic Surgery
DX: Z01.810 Encounter for preprocedural cardiovascular examination (principal); M16.12 Unilateral primary osteoarthritis, left hip
CPT/HCPCS: 93005; 93010

== ENCOUNTER 2020-07-26 07:15 | Inpatient (IN) | payer OTHER ==
[2020-07-26] MEDS ORDERED: Cefepime 2 GM VIAL ONE (07:56)
[2020-07-26] MEDS ORDERED: Vancomycin 1 GM/200 ML BAG ONE (07:56)
[2020-07-26 08:07] LABS: #Lymphocytes 1.1 thou/uL (1.20-3.40); #Monocytes 0.9 thou/uL (0.11-0.59); %Basophils 0.2 % (0.0-1.0); %Eosinophils 0.2 % (0.0-10.0); %Lymphocytes 6.2 % (21.0-51.0); %Monocytes 4.7 % (0.0-10.0); %Neutrophils 88.8 % (42.0-75.0); Hemoglobin 12.4 g/dL (12.0-16.0); Mean Corpuscular HGB CONC 33.7 g/dL (32.0-36.0); Mean Corpuscular Hemoglobin 32.7 pg (27.0-31.0); Mean Corpuscular Volume 97.1 fL (78.0-98.0); Mean Platelet Volume 6.7 fL (7.4-10.4); Platelet Count 372 thou/uL (130-400); RBC Distribution Width 12.8 % (11.5-14.5); Red Blood Cell (RBC) Count 3.78 mill/uL (4.20-5.40); White Blood Cell (WBC) Count 18.1 thou/uL (4.8-10.8)
[2020-07-26 08:29] LABS: ALT (SGPT) 20 U/L (8-55); AST (SGOT) 30 U/L (5-34); Albumin 3.7 g/dL (3.5-5.0); Alkaline Phosphatase 142 U/L (40-110); Anion Gap 14 mmol/L (10-20); BUN (Urea Nitrogen) 18 mg/dL (9.8-20.1); Bilirubin, Total 0.5 mg/dL (0.2-1.2); Calc. Creatinine Clearance 0 mL/min (70-130); Calcium 9.5 mg/dL (7.8-10.44); Carbon Dioxide 29 mmol/L (22-29); Chloride 97 mmol/L (98-107); Estimated GFR-MDRD 44; Globulin 3.7 g/dL (2.4-3.5); Glucose 108 mg/dL (70-105); Lipase 7 U/L (8-78); Potassium 3.8 mmol/L (3.5-5.1); Protein, Total 7.4 g/dL (6.0-8.3); Sodium 136 mmol/L (136-145)
[2020-07-26 09:19] LABS: Bacteria/HPF 2+ HPF (None Seen); Bilirubin Negative (Negative); Blood, Urine 2+ (Negative); Clarity Clear (Clear); Glucose, Urine (Dipstick) Normal (Negative); Ketone, Urine Negative (Negative); Leukocyte Negative Leu/uL (Negative); Nitrite Negative (Negative); Protein, Urine (Dipstick) 30 mg/dL (Neg-Trace); RBC/HPF 21-50 HPF (0-3); Specific Gravity, Urine 1.038 (1.002-1.036); Squamous Epithelial 0-3 HPF (0-3); WBC/HPF 0-3 HPF (0-3); pH, Urine 5.5 (5.0-9.0)
--- NOTE | 2020-07-26 12:46 | RAD ---
2 views of the left hip: 07/26/2020 COMPARISON: 07/11/2020 radiograph, CT at [facility] 07/25/2020 HISTORY: Recent surgery, fluid collection around hip FINDINGS: There is a stable left hip arthroplasty with no evidence for hardware failure. No acute fra cture or dislocation. No subcutaneous gas. There is probable mild soft tissue swelling lateral to the proximal left femur. IMPRESSION: No acute osseous abnormality. Recent CT examination performed 07/25/2020 at [facility] demonstr ates a nonspecific fluid collection lateral and anterior to the femoral head component, not well assessed on this exam. This may be related to infection. On that CT this fluid collection measured 6. 8 x 5.8 x 10.4 cm. Recommend orthopedic consultation.
--- NOTE | 2020-07-26 14:15 | CON ---
DATE OF CONSULTATION: 07/26/2020 REQUESTING PHYSICIAN: Dr. Ton Dominguez. CONSULTING PHYSICIAN: Justo Duarte MD REASON FOR CONSULTATION: Concern for infected left hip prosthesis. HISTORY OF PRESENT ILLNESS: This is a 55-year-old female, who recently underwent left total hip replacement on 07/11/[address] Reese. The patient did well in the operative suite. She was discharged home and has done very well in the postoperative period until yesterday when she developed a fever at home. She states her fever at home was 100.8. She was also nauseous and had some abdominal cramping and some dysuria. She presented to the [place] [facility] at that time for full febrile workup. She was COVID tested and flu tested. These were both negative. She also underwent CT imaging of the chest, abdomen, pelvis, which were available for review today. These showed a loculated fluid collection lateral to the left total hip prosthesis. We were consulted for this reason. Currently at bedside, the patient denies any hip pain. She states that her hip has done very well and she is very pleased with that postoperatively. She has had no redness and no drainage from the incision. The only symptoms she is experiencing include dysuria with some lower abdominal discomfort as well as some nausea. She was recommended for transfer to our facility last night, however, due to the cost of the ambulance ride, she declined. She was given some Levaquin p.o. last night before going home. She then returned to our facility today for concerns about her symptoms and also continued fever. PAST MEDICAL HISTORY: Significant for total hip replacement on July 11, 2020; depression; chronic pain, which is controlled by Dr. Muhammad. PAST SURGICAL HISTORY: Includes hip surgery; appendectomy; hysterectomy; cervical surgery, of note which became infected postoperatively. SOCIAL HISTORY: The patient lives at home alone. Denies smoking or drug or alcohol use. FAMILY HISTORY: Reviewed and noncontributory. REVIEW OF SYSTEMS: Ten-point review of systems conducted and otherwise negative except for stated above. PHYSICAL EXAMINATION: VITAL SIGNS: Current vital signs including blood pressure 97/62, pulse of 79, temperature of 98, and O2 saturation of 95 on room air. GENERAL: The patient is awake and alert. She appears to not be feeling well at this time. She is very pleasant and cooperative with exam. HEENT: Head is normocephalic and atraumatic. NECK: Supple. Trachea midline. LUNGS: Breathing is nonlabored. ABDOMEN: Shows her belly to be soft and nontender in the upper quadrants. She does have some nonspecific suprapubic tenderness to palpation. Positive bowel sounds present. EXTREMITIES: All 4 extremities were evaluated. The left hip does show a surgical wound. This is clean and dry. There is no drainage. No erythema. Edges are well approximated. Range of motion evaluation of the left hip shows active and passive range of motion both intact without any signs of pain or discomfort elicited. Distal neurovascular status is intact. Evaluation of the right lower extremity shows an erythematous area to the prepatellar bursa. There is a palpable fluid collection in the bursa. This is mildly tender to palpation. This is not tight. This does not extend over the joint. She does have full range of motion actively in her knee. Distal neurovascular status is intact. LABORATORY DATA: From today's visit were reviewed. She was noted to have an elevated white blood cell count at 18.1, hemoglobin 12.4, hematocrit 36.7, platelet count of 372. ESR elevated at 88. C-reactive protein elevated at 21. Chemistry panel also shows her creatinine elevated at 1.26. The urinalysis today shows 2+ blood, negative for leukocyte esterase, 21 to 50 red blood cells, and 2+ bacteria with 0 to 3 white blood cells. X-ray of the AP pelvis today finds a stable left hip arthroplasty with no evidence for hardware failure. No acute fracture or dislocation of the left proximal femur. Overall impression of this x-ray does read no acute osseous abnormality. Recent CT examination performed on 07/25/2020, at [facility] in [place] demonstrates a nonspecific fluid collection lateral and anterior to the femoral head component, not well assessed on this current exam. Fluid collection measured 6.8 x 5.8 x 10.4 cm. ASSESSMENT: The patient with sepsis criteria and recent left total hip arthroplasty 2 weeks ago. PLAN: At this time, it does not appear that her hip appears infected. She has active and passive range of motion without any signs of discomfort or pain. Her incision is well healed without any signs of infection. I do believe this is likely coming from either her urine or a septic prepatellar bursitis. Either way, she has met sepsis criteria, and we will recommend that she be admitted to the Medicine Service for IV antibiotics and further observation. We will keep an eye on her throughout her hospital stay. We anticipate the erythema to her right prepatellar region will lessen with IV antibiotics; however, if it does not, it could possibly warrant surgical intervention with an I and D at that time. We will be following on this patient. Job ID: [id number]
--- NOTE | 2020-07-26 15:24 | HP ---
PRIMARY CARE PHYSICIAN: Ramiro Webb. CHIEF COMPLAINT: Fever. HISTORY OF PRESENT ILLNESS: This is a 55-year-old female with a history of high blood pressure and chronic musculoskeletal complaints. She has had neck surgery with revisions for an infection of the hardware and then most recently two weeks ago the patient had a total hip replacement done here by Dr. Reese. She did well after the hip surgery and had relief from her chronic hip pain and was doing well at home. Prior to the surgery, she did have development of infection or cellulitis on her right foot that resolved with antibiotics from Podiatry before her surgery. Yesterday, the patient developed onset of fever up to 100.8. She also felt some nausea and just felt really bad and then later in the day she started developing some mild dysuria and some cramping of her bladder when peeing. The patient went into [facility]. There, she was diagnosed with possible urinary tract infection. They did do a CT scan of her hip at that time, which showed a nonspecific fluid collection lateral and anterior to the femoral head component of the hip replacement, fluid collection measuring 6.8 x 5.8 x 10.4 cm. This was concerning for possibility of infection, so the patient was recommended to be transferred to [facility]. She was concerned about the cost of the ambulance transport and did not want to go into the hospital yesterday. She was given oral Levaquin at that time and she eventually left against medical advice. Today, she had persistence of her low-grade fevers and feeling bad and she also noted some swelling anterior to leg below her knee with some streaking redness from it, so she came into the ER here. In the ER, she was found to be initially tachycardic with blood pressure in the 90 systolic. She also had an elevated white blood cell count, elevated ESR, elevated CRP, and had white cells and bacteria in her urine. Orthopedics was consulted by the ER. They did review her imaging and did an exam and determined that the fluid collection was most likely a hematoma. However, they were concerned about the possibility of current infection that she is having seeding her prosthesis, because she has had problems like this before, so they recommended IV antibiotic treatment. The patient was given a dose of cefepime and vancomycin in the emergency room along with some IV fluids and she is no longer having any tachycardia. Blood pressures have improved to 130 systolic. She has not had any pain at this time. REVIEW OF SYSTEMS: CONSTITUTIONAL: See HPI. EYES: No double vision or blurred vision. ENT: No congestion, drainage, or sore throat. CARDIOVASCULAR: No chest pain, no palpitations, or racing heart. PULMONARY: No coughing, wheezing, or shortness of breath. GASTROINTESTINAL: See HPI. No vomiting. No abdominal pain currently. No diarrhea or constipation. GENITOURINARY: See HPI. No hematuria. MUSCULOSKELETAL: No significant muscle aches or joint pains. SKIN: The patient does have the swollen bursitis with redness and streaks of red running up from it and running up around her knee and then down the entire front side of her carver. No other skin lesions noted. NEUROLOGIC: No numbness, tingling, or focal weakness. PAST MEDICAL HISTORY: 1. Chronic neck and back pain. 2. Previous hypertension, though she denies current problems with this. PAST SURGICAL HISTORY: 1. 11 cervical spine surgeries. 2. Hysterectomy. 3. Appendectomy. 4. Left total hip replacement. PAST PSYCHIATRIC HISTORY: Depression. SOCIAL HISTORY: No tobacco, alcohol, or illicit drug use. She lives at home with her son. She is currently a full code. Should she be incapacitated, her son, Nicolás [place] and his sister would be her medical decision makers. FAMILY MEDICAL HISTORY: Father with heart attack and mother with stroke. ALLERGIES: PENICILLIN CAUSED GENERALIZED SKIN RASH SEVERAL DAYS AGO WHEN SHE WAS BEING TREATED FOR THE NECK INFECTION. CURRENT MEDICATIONS: 1. Aspirin 81 mg twice a day. 2. Bupropion extended release 150 mg twice a day. 3. Cymbalta 60 mg twice a day. 4. Mart 10/325 one tablet every 6 hours as needed for pain. 5. Combivent 2 puffs inhaled four times a day. 6. Methadone 10 mg 3 times a day. 7. Mirtazapine 15 mg as needed for sleep. 8. Naproxen as needed for pain. PHYSICAL EXAMINATION: VITAL SIGNS: Blood pressure 132/57, pulse 72, respirations 16, temperature 98.3, O2 saturation 96% on room air. GENERAL: This is a well-developed, well-nourished white female, in no acute distress. HEENT: Pupils are equal, round, and reactive to light. Oropharynx clear without lesions, erythema, or exudate. NECK: Supple. No lymphadenopathy. No thyroid nodules or enlargement. No JVD. HEART: Regular rate and rhythm. No murmurs, rubs, or gallops. LUNGS: Clear to auscultation bilaterally. No wheezes, crackles, or rhonchi. ABDOMEN: Soft, mild tenderness to palpation over the bladder area. No other tenderness to palpation. No guarding or rebound tenderness. No hepatosplenomegaly or other masses. Normoactive bowel sounds. EXTREMITIES: No clubbing, cyanosis, or edema. The patient does have a large fluid-filled infrapatellar bursa over her patellar ligament and proximal tibia. This is red and hot and has a few streaks of redness going around the knee and going down the carver as well. SKIN: No other rashes besides the above mentioned findings. NEUROLOGIC: The patient moves all extremities equally. No facial droop. PSYCHIATRIC: Alert and oriented x3. Normal mood and affect. LABORATORY DATA: CBC with a white blood cell count of 18,000 with 88% neutrophils. Hemoglobin, hematocrit, and platelets are all normal. Complete metabolic panel is notable for chloride of 97, creatinine of 1.26, which is a new elevation since her surgery, glucose of 108. Alkaline phosphatase 142. No other abnormalities. Lactic acid was negative x1. C-reactive protein is elevated at 21. ESR is elevated at 88. Urinalysis shows 2+ blood, 20 to 50 red blood cells, 0 to 3 white blood cells, and 2+ bacteria. IMAGING STUDIES: I did review the x-ray films of the left hip done in the emergency room and in radiologist's report, there is a left hip prosthesis in place which appears well aligned. There is no evidence of fluid collection on the x-ray done here today. EKG done in the emergency room shows normal sinus rhythm, 75 beats per minute. There is no ST-segment changes. There are no QRS abnormalities. There is no prolonged QT. Normal EKG. ASSESSMENT: 1. Sepsis source most likely urine or septic prepatellar bursitis. We will continue patient's cefepime and vancomycin dosed renally. We will watch blood and urine cultures collected here today and given the patient was given Levaquin yesterday, then they may be negative. We will try to obtain any cultures that were sent from the [facility]. I will also ask Dr. Manzo to consult on the case. 2. Urinary tract infection. Currently on cefepime. We will watch cultures. 3. Prepatellar bursitis, possibly septic with evidence of cellulitis. We will continue IV antibiotics and we will monitor for improvement. If there is no improvement, orthopedics is considering surgical debridement. 4. History of chronic pain. We will resume the patient's home pain medications. 5. History of hypertension, currently with normal blood pressure. 6. Deep venous thrombosis prophylaxis with the patient on Lovenox subcu daily. 7. Acute renal failure, mild, likely due to sepsis. We will monitor for improvement with IV hydration and will renally dose medications. 8. Gastrointestinal prophylaxis. Put the patient on Pepcid twice a day. 9. Code status. The patient is a full code. Should she be incapacitated, her son and daughter would be her medical decision makers. Job ID: [id number]
[2020-07-26] MEDS ORDERED: HYDROcodone/Acetaminophen 10/325 mg Tablet PO PRN (16:09)
[2020-07-26] MEDS ORDERED: Acetaminophen 650 MG Suppository PR PRN (16:09)
[2020-07-26] MEDS ORDERED: Guaifenesin DM 100-10/5 ML UDCUP PO PRN (16:09)
[2020-07-26] MEDS ORDERED: Acetaminophen 325 MG TAB PO PRN (16:09)
[2020-07-26] MEDS ORDERED: Mirtazapine 15 MG TAB PO PRN (16:09)
[2020-07-26] MEDS ORDERED: Ondansetron ODT 4 MG TAB PO PRN (16:09)
[2020-07-26] MEDS ORDERED: Ondansetron PF 4 MG/2 ML Vial IVP PRN (16:09)
[2020-07-26 16:29] VITALS: BMI 20.5
[2020-07-26] MEDS: Bupropion 150 MG SR TAB PO SCH (20:52)
[2020-07-26] MEDS: Aspirin 81 mg Enteric Coated Tablet PO SCH (20:52)
[2020-07-26] MEDS: DULoxetine 60 MG CAP PO SCH (20:52)
[2020-07-26] MEDS: Famotidine 20 MG TAB PO SCH (20:52)
[2020-07-26] MEDS: METHadone HCl 10 MG TAB PO SCH (21:10)
--- NOTE | 2020-07-26 23:45 | CON ---
DATE OF CONSULTATION: 07/26/2020 REASON FOR CONSULTATION: Fever and dysuria, findings in the left hip arthroplasty site. HISTORY OF PRESENT ILLNESS: This 55-year-old who had a left hip replacement just a few days ago without any major issues and subsequently developed temperature elevation up to 100.8 with nausea, had some mild dysuria and then she was diagnosed with possible UTI in [facility]. A CT of the hip was done, which showed nonspecific fluid collection measuring 6.8 x 5.8 x 10.4. She was then transferred over here because of the concern with the hip complication. She did not want to go in the hospital because of fears of the financial cost of ambulance transport. She was given oral Levaquin and left against medical advice. Because of persistence of fever, she also noted swelling in the left knee anterior aspect with streaking, so she came to the emergency room, had a systolic of 90, a little bit tachycardic. WBC count was elevated, so she was started on broad-spectrum coverage and Orthopedic Surgery consulted. They felt that the fluid in the hip was most likely hematoma. Currently, she is actually looking pretty good. She does not have any urinary symptoms. No headaches, visual symptoms, sore throat, odynophagia, or dysphagia. No back pain. No respiratory symptoms. No abdominal pain or diarrhea and she has quite a bit of pain in the right knee anterior aspect. No other joint symptoms. MEDICAL HISTORY: Neck operations with fusion, low back operation with fusion, hypertension, hysterectomy, appendectomy, and left hip replacement. SOCIAL HISTORY: Lives in [place] with son. Never smoker. No alcoholic beverage use. FAMILY HISTORY: Coronary artery disease and CVA. ALLERGIES: PENICILLIN. MEDICATIONS: Med list at this time, she is on; 1. Inhalers. 2. Aspirin. 3. Bupropion. 4. Cefepime. 5. Duloxetine. 6. Hydrocodone. 7. Vancomycin. PHYSICAL EXAMINATION: VITAL SIGNS: Temperature 97.9, BP 130/80, saturating 93 on room air. GENERAL: Appears in no distress. SKIN: Shows area of erythema and swelling right at the right prepatellar region. The left hip surgery incision appears healed with no erythema or tenderness or swelling or drainage. No lymphadenopathy. HEENT: Ocular movements conjugate. Oral cavity normal. NECK: Supple. LUNGS: Symmetric. Clear breath sounds. HEART: S1 and S2. Regular rate. No S3 or S4. ABDOMEN: Soft. Not distended or tender. No ascites. No bladder distention. EXTREMITIES: Right knee range of motion is somewhat preserved, although it is painful because of the prepatellar inflammatory process. The prepatellar bursa is swollen and tender and has a cystic consistency to it. She has onychomycosis, onychodystrophy in pretty much all toenails. Pulses are 1+ in dorsalis pedis. No edema. NEUROLOGIC: Nonfocal including cognitive function. LABORATORY DATA: White cell count 18,000, hemoglobin 12.4, platelets 372 with 88% neutrophils. Sodium 136, creatinine 1.26, GFR 44 with glucose 108. Liver profile normal. Alkaline phosphatase 142. CRP 21, albumin 3.7. Urinalysis with 0 to 3 wbc's, 21 to 50 rbc's. IMAGING STUDIES: There is a hip x-ray from this admission with no osseous abnormality. Nonspecific fluid collection anterior to the femoral head component. She had a chest, abdomen, and pelvis CT in April, which did not show any acute findings. ASSESSMENT: Recent left hip replacement with now fever leukocytosis and prepatellar bursitis. After informed consent and topical antisepsis, I obtained a sample from the bursa fluid with an 18-gauge needle and about 2 mL of purulent looking fluid was submitted for cultures and crystal analysis. Continue current antimicrobial therapy and then submit also chlamydia and GC PCR in urine, hepatitis C serology, HIV, and RPR. It unclear the reason for the dysuria in the face of absence of pyuria. An infectious bursitis appears to be the most likely scenario. Infection of the L hip arthroplasty is less likely in view of the appearance of incision and the absence of pain on rom although, if there is truly infectious pre- patellar bursitis, bacteremia could potentially seed the L hip site. Job ID: [id number] [facility]
[2020-07-27 05:48] LABS: #Basophils 0.1 thou/uL (0.0-0.2); #Eosinphils 0.3 thou/uL (0.0-0.7); #Lymphocytes 2.1 thou/uL (1.20-3.40); %Basophils 0.4 % (0.0-1.0); %Eosinophils 2.5 % (0.0-10.0); %Lymphocytes 16.9 % (21.0-51.0); %Monocytes 8.1 % (0.0-10.0); %Neutrophils 72.1 % (42.0-75.0); Hemoglobin 10.1 g/dL (12.0-16.0); Mean Corpuscular HGB CONC 32.3 g/dL (32.0-36.0); Mean Corpuscular Hemoglobin 31.8 pg (27.0-31.0); Mean Corpuscular Volume 98.5 fL (78.0-98.0); Mean Platelet Volume 6.7 fL (7.4-10.4); Platelet Count 307 thou/uL (130-400); RBC Distribution Width 12.5 % (11.5-14.5); Red Blood Cell (RBC) Count 3.18 mill/uL (4.20-5.40); White Blood Cell (WBC) Count 12.5 thou/uL (4.8-10.8)
[2020-07-27 06:10] LABS: Anion Gap 10 mmol/L (10-20); BUN (Urea Nitrogen) 15 mg/dL (9.8-20.1); Calc. Creatinine Clearance 67 mL/min (70-130); Calcium 8.7 mg/dL (7.8-10.44); Carbon Dioxide 29 mmol/L (22-29); Chloride 104 mmol/L (98-107); Estimated GFR-MDRD 61; Glucose 86 mg/dL (70-105); Potassium 3.9 mmol/L (3.5-5.1); Sodium 139 mmol/L (136-145)
--- NOTE | 2020-07-27 07:37 | PDOC.HOSPP ---
- Subjective Encounter Date: 07/27/20 Encounter Time: 07:35 Subjective: Patient complaining of a diffuse headache, 6/10 in severity, and nausea. No vision changes or vomiting. Does not suffer from headaches/migraines at baseline. Has not had any PRN meds yet. States she got to her room late last night and only able to eat a salad. Did not get much rest. Has not had any further spikes in her temperature. S/p I&D of right knee by Dr. Manzo, awaiting cultures. Has been able to walk to the bathroom independently without the help of her walker. Otherwise feels well, better than when she first came in. - Objective Vital Signs & Weight: Vital Signs (12 hours) Temp Pulse Resp BP Pulse Ox 07/27/20 07:15 97.7 F 86 20 127/72 92 L 07/27/20 04:37 97.5 F L 65 16 98/61 95 07/26/20 23:30 98.5 F 78 16 122/72 87 L Weight Weight 143 lb 3.2 oz I&O: 07/26/20 07/27/20 07/28/20 06:59 06:59 06:59 Intake Total 480 Balance 480 Result Diagrams: 07/27/20 05:08 07/27/20 05:08 Hospitalist ROS - Review of Systems Constitutional: reports: other (headache, diffuse) Eyes: denies: pain, vision change, conjunctivae inflammation, eyelid inflammation, redness, other Respiratory: denies: cough, dry, shortness of breath, hemoptysis, SOB with excertion, pleuritic pain, sputum, wheezing, other Cardiovascular: denies: chest pain, palpitations, orthopnea, paroxysmal noc. dyspnea, edema, light headedness, other Gastrointestinal: reports: nausea. denies: vomiting, abdominal pain, diarrhea, constipation Genitourinary: denies: dysuria, frequency, incontinence, hematuria, retention, other Musculoskeletal: reports: other (right knee discomfort, improved) - Medication Medications: Active Medications Generic Name Dose Route Start Last Admin Trade Name Freq PRN Reason Stop Dose Admin Aspirin 81 mg 07/26/20 21:00 07/26/20 20:52 Aspirin 81 Mg Enteric Coated Tablet PO 81 mg BID JOSE G Administration Bupropion HCl 150 mg 07/26/20 21:00 07/26/20 20:52 Bupropion 150 Mg Sr Tab PO 150 mg BID JOSE G Administration Duloxetine HCl 60 mg 07/26/20 21:00 07/26/20 20:52 Duloxetine 60 Mg Cap PO 60 mg BID JOSE G Administration Famotidine 20 mg 07/26/20 21:00 07/26/20 20:52 Famotidine 20 Mg Tab PO Not Given BID JOSE G Methadone HCl 10 mg 07/26/20 21:00 07/26/20 21:10 Methadone Hcl 10 Mg Tab PO 10 mg TID JOSE G Administration Pneumococcal 13-Valent Conj Vacc 0.5 ml 07/27/20 16:45 07/26/20 17:02 Prevnar 13-Sylvia Conj/Pf 0.5 Ml Syringe IM 07/27/20 16:46 Not Given .ONCE ONE - Exam General Appearance: NAD, awake alert Eye: PERRL, anicteric sclera ENT: normocephalic atraumatic, no oropharyngeal lesions Neck: supple, no lymphadenopathy Heart: RRR, normal peripheral pulses Respiratory: CTAB, no wheezes, no rales, no ronchi, normal chest expansion Gastrointestinal: soft, non-tender, non-distended, normal bowel sounds, no guarding, no rigidity Extremities - other findings: Rt knee with slight warmth & erythema, small boggy prepatellar collection Skin: normal turgor, no lesions, no rashes Neurological: cranial nerve grossly intact, normal sensation to touch, no weakness, no focal deficits Musculoskeletal: normal tone, normal strength, no muscle wasting, generalized weakness Psychiatric: normal affect, normal behavior, A&O x 3 Hosp A/P (1) Sepsis Code(s): A41.9 - SEPSIS, UNSPECIFIED ORGANISM Status: Acute Plan: Secondary to left hip replacement associated infection vs. right prepatellar infection. BP has improved and no further spikes in temp. Continue IV Antibiotics. Further recommendations as per Ortho and ID teams. (2) Prepatellar bursitis Code(s): M70.40 - PREPATELLAR BURSITIS, UNSPECIFIED KNEE Status: Acute Plan: Spontaneously developed yesterday morning, with associated warmth and erythema. Possible source for infection. S/p aspiration by Dr. Manzo. Awaiting fluid analysis. Continue IV antibiotics. (3) Acute renal failure Status: Acute Plan: Creatinine is normal, was 1.26 yesterday. Continue to encourage fluid intake. Continue to monitor renal function. (4) UTI (urinary tract infection) Status: Suspected Plan: Currently covered with Cefepime. Patient with 2+ bacteria on UA, no WBC, nitrites or Leukocyte esterase. UCx pending. (5) Chronic pain Code(s): G89.29 - OTHER CHRONIC PAIN Status: Chronic Plan: Home medications restarted. (6) History of hypertension Code(s): Z86.79 - PERSONAL HISTORY OF OTHER DISEASES OF THE CIRCULATORY SYSTEM Status: Chronic Plan: Is not currently on BP meds. BP is normal, continue to monitor. - Plan old records reviewed/req, DVT proph w/lovenox PRNs available for TINEO and nausea.
[2020-07-27] MEDS ORDERED: traMADol HCl 50 MG TAB PO SCH (07:45)
[2020-07-27] MEDS: DULoxetine 60 MG CAP PO SCH ×2 (08:08→21:48)
[2020-07-27] MEDS: METHadone HCl 10 MG TAB PO SCH ×3 (08:08→22:02)
[2020-07-27] MEDS: Aspirin 81 mg Enteric Coated Tablet PO SCH ×2 (08:08→21:47)
[2020-07-27] MEDS: Bupropion 150 MG SR TAB PO SCH ×2 (08:08→22:04)
[2020-07-27] MEDS: Famotidine 20 MG TAB PO SCH ×2 (08:08→21:48)
[2020-07-27] MEDS: Cefepime 2 GM in Sodium Chloride 0.9% 100 ML IVPB SCH (08:10)
[2020-07-27] MEDS: Enoxaparin Sodium 40 MG/0.4 ML SYRINGE SC SCH (08:10)
[2020-07-27] MEDS ORDERED: Vancomycin HCl 1.25 GM in Sodium Chloride 0.9% 250 ML 250 ML IVPB SCH (09:00)
[2020-07-27] MEDS ORDERED: Prevnar 13-Val Conj/PF 0.5 ML SYRINGE IM ONE (16:45)
[2020-07-28 06:01] LABS: #Basophils 0.1 thou/uL (0.0-0.2); #Eosinphils 0.3 thou/uL (0.0-0.7); #Lymphocytes 1.8 thou/uL (1.20-3.40); #Monocytes 0.8 thou/uL (0.11-0.59); #Neutrophils 6.5 thou/uL (1.40-6.50); %Basophils 0.6 % (0.0-1.0); %Eosinophils 3.3 % (0.0-10.0); Hemoglobin 9.6 g/dL (12.0-16.0); Mean Corpuscular HGB CONC 31.8 g/dL (32.0-36.0); Mean Corpuscular Hemoglobin 30.8 pg (27.0-31.0); Mean Corpuscular Volume 96.8 fL (78.0-98.0); Mean Platelet Volume 6.6 fL (7.4-10.4); Platelet Count 324 thou/uL (130-400); RBC Distribution Width 12.4 % (11.5-14.5); Red Blood Cell (RBC) Count 3.12 mill/uL (4.20-5.40); White Blood Cell (WBC) Count 9.4 thou/uL (4.8-10.8)
[2020-07-28 06:18] LABS: Lactic Acid 0.5 mmol/L (0.5-2.2)
[2020-07-28 06:27] LABS: ALT (SGPT) 13 U/L (8-55); AST (SGOT) 15 U/L (5-34); Albumin 3.1 g/dL (3.5-5.0); Alkaline Phosphatase 120 U/L (40-110); Anion Gap 11 mmol/L (10-20); BUN (Urea Nitrogen) 16 mg/dL (9.8-20.1); Bilirubin, Total 0.2 mg/dL (0.2-1.2); CRP (Inflammatory) 17.43 mg/dL (= or < 0.5); Calc. Creatinine Clearance 66 mL/min (70-130); Calcium 8.7 mg/dL (7.8-10.44); Carbon Dioxide 30 mmol/L (22-29); Chloride 103 mmol/L (98-107); Estimated GFR-MDRD 59; Globulin 3.1 g/dL (2.4-3.5); Glucose 89 mg/dL (70-105); Potassium 4.5 mmol/L (3.5-5.1); Protein, Total 6.2 g/dL (6.0-8.3); Sodium 139 mmol/L (136-145)
[2020-07-28] MEDS: Aspirin 81 mg Enteric Coated Tablet PO SCH ×2 (08:12→21:01)
[2020-07-28] MEDS: DULoxetine 60 MG CAP PO SCH ×2 (08:12→20:58)
[2020-07-28] MEDS: Bupropion 150 MG SR TAB PO SCH ×2 (08:12→20:59)
[2020-07-28] MEDS: Cefepime 2 GM in Sodium Chloride 0.9% 100 ML IVPB SCH (08:12)
[2020-07-28] MEDS: Famotidine 20 MG TAB PO SCH ×2 (08:13→20:58)
[2020-07-28] MEDS: Enoxaparin Sodium 40 MG/0.4 ML SYRINGE SC SCH (08:13)
[2020-07-28] MEDS: METHadone HCl 10 MG TAB PO SCH ×3 (08:17→20:59)
[2020-07-28] MEDS ORDERED: Vancomycin HCl 1.25 GM in Sodium Chloride 0.9% 250 ML 250 ML IVPB SCH (11:00)
--- NOTE | 2020-07-28 12:59 | PRG ---
DATE OF SERVICE: 07/28/2020 SUBJECTIVE: Feeling better. There is a little bit of spreading out of the erythema, but it is very mild pinkish erythema, not that more intense erythema that was noted and more concentrated around the bursa area. The bursa site is not as swollen, but still has some fluctuance inside. OBJECTIVE: VITAL SIGNS: Vital signs are normal. A little bit hypoxic at 93 on room air. GENERAL: Appears in no distress. LUNGS: Clear. HEART: S1 and S2, regular rate. ABDOMEN: Soft, not distended. EXTREMITIES: The right leg again with a marked improvement of the erythema. There is still prepatellar bursa swelling moderate with mild erythema and moderate tenderness. LABORATORY DATA: White cell count down to 9.4. Chemistry was unremarkable. CRP 17.3. Group G Streptococcus retrieved from the bursa sac. ASSESSMENT AND DISCUSSION: Hip replacement, fever, leukocytosis, genitourinary symptoms which have resolved and prepatellar bursitis, which I believe is the culprit here. This is secondary to group G Streptococcus. The area was aspirated with marked improvement plus antimicrobial therapy, we will transition her to cefazolin and eventually to Keflex for discharge planning. The options now would be either repeat aspirate or surgical I and D to clear all the purulence from the bursa sac and accelerate improvement. Job ID: [id number]
--- NOTE | 2020-07-28 13:13 | PDOC.HOSPP ---
- Subjective Encounter Date: 07/28/20 Encounter Time: 08:40 Subjective: c/o knee pain and redness is amb in room - Objective Vital Signs & Weight: Vital Signs (12 hours) Temp Pulse Resp BP Pulse Ox 07/28/20 07:30 98.4 F 69 18 112/65 93 L Weight Weight 143 lb 3.2 oz I&O: 07/27/20 07/28/20 07/29/20 06:59 06:59 06:59 Intake Total 480 480 Balance 480 480 Result Diagrams: 07/28/20 05:30 07/28/20 05:30 Hospitalist ROS - Medication Medications: Active Medications Generic Name Dose Route Start Last Admin Trade Name Freq PRN Reason Stop Dose Admin Aspirin 81 mg 07/26/20 21:00 07/28/20 08:12 Aspirin 81 Mg Enteric Coated Tablet PO 81 mg BID JOSE G Administration Bupropion HCl 150 mg 07/26/20 21:00 07/28/20 08:12 Bupropion 150 Mg Sr Tab PO 150 mg BID JOSE G Administration Duloxetine HCl 60 mg 07/26/20 21:00 07/28/20 08:12 Duloxetine 60 Mg Cap PO 60 mg BID JOSE G Administration Enoxaparin Sodium 40 mg 07/27/20 09:00 07/28/20 08:13 Enoxaparin Sodium 40 Mg/0.4 Ml Syringe SC Not Given 0900 JOSE G Famotidine 20 mg 07/26/20 21:00 07/28/20 08:13 Famotidine 20 Mg Tab PO 20 mg BID JOSE G Administration Methadone HCl 10 mg 07/26/20 21:00 07/28/20 08:17 Methadone Hcl 10 Mg Tab PO 10 mg TID JOSE G Administration - Exam General Appearance: awake alert Eye: PERRL, anicteric sclera ENT: no oropharyngeal lesions, moist mucosa Neck: supple, no JVD Heart: RRR, no murmur Respiratory: no wheezes, no rales Gastrointestinal: soft, non-tender, non-distended, normal bowel sounds Extremities: no cyanosis Extremities - other findings: right knee and leg erythema+ Neurological: cranial nerve grossly intact, no focal deficits Psychiatric: normal affect, A&O x 3 Hosp A/P (1) Prepatellar bursitis Code(s): M70.40 - PREPATELLAR BURSITIS, UNSPECIFIED KNEE Status: Acute Qualifiers: Laterality: right Qualified Code(s): M70.41 - Prepatellar bursitis, right knee (2) Sepsis Code(s): A41.9 - SEPSIS, UNSPECIFIED ORGANISM Status: Resolved (3) Chronic pain Code(s): G89.29 - OTHER CHRONIC PAIN Status: Chronic Qualifiers: Chronic pain type: chronic pain syndrome Qualified Code(s): G89.4 - Chronic pain syndrome (4) History of hypertension Code(s): Z86.79 - PERSONAL HISTORY OF OTHER DISEASES OF THE CIRCULATORY SYSTEM Status: Chronic (5) Mood disorder Code(s): F39 - UNSPECIFIED MOOD [AFFECTIVE] DISORDER Status: Chronic - Plan d/w ortho, will likely have I&D of right prepatellar bursa is growing strep G, currently on cefepime and vanc, for augmentin on dc likely dc plan in am continue home meds, methadone tid, wellbutryn, cymbalta, remeron, asp bid and nebs blood and urine cultures are -ve hemostable
[2020-07-28] MEDS: CEFAZOLIN 2 GM in Premix Bag 1 BAG IVPB SCH ×2 (14:34→21:03)
[2020-07-28] MEDS ORDERED: CEFAZOLIN 2 GM in Premix Bag 1 BAG IVPB SCH (15:00)
[2020-07-28] MEDS: Senokot S 8.6-50 MG TAB PO PRN (21:10)
[2020-07-29] MEDS: CEFAZOLIN 2 GM in Premix Bag 1 BAG IVPB SCH ×2 (05:12→14:30)
[2020-07-29 07:03] LABS: #Eosinphils 0.4 thou/uL (0.0-0.7); #Lymphocytes 1.8 thou/uL (1.20-3.40); #Monocytes 0.7 thou/uL (0.11-0.59); %Basophils 0.5 % (0.0-1.0); %Monocytes 9.2 % (0.0-10.0); %Neutrophils 62.4 % (42.0-75.0); Hemoglobin 9.7 g/dL (12.0-16.0); Mean Corpuscular HGB CONC 32.9 g/dL (32.0-36.0); Mean Corpuscular Volume 97.2 fL (78.0-98.0); Mean Platelet Volume 6.4 fL (7.4-10.4); Platelet Count 335 thou/uL (130-400); RBC Distribution Width 12.3 % (11.5-14.5); Red Blood Cell (RBC) Count 3.02 mill/uL (4.20-5.40)
[2020-07-29] MEDS: Aspirin 81 mg Enteric Coated Tablet PO SCH (08:14)
[2020-07-29] MEDS: Enoxaparin Sodium 40 MG/0.4 ML SYRINGE SC SCH (08:14)
[2020-07-29] MEDS: METHadone HCl 10 MG TAB PO SCH ×2 (08:16→15:18)
[2020-07-29] MEDS: Famotidine 20 MG TAB PO SCH (08:16)
[2020-07-29] MEDS: DULoxetine 60 MG CAP PO SCH (08:16)
[2020-07-29] MEDS: Bupropion 150 MG SR TAB PO SCH (08:16)
[2020-07-29] MEDS: Senokot S 8.6-50 MG TAB PO PRN (08:16)
[2020-07-29] MEDS ORDERED: PROPOFOL 200 MG/20 ML VIAL ONE (10:45)
[2020-07-29] MEDS ORDERED: Ondansetron PF 4 MG/2 ML Vial ONE (10:45)
[2020-07-29] MEDS ORDERED: Lidocaine 1% PF 5 ML VIAL ONE (10:45)
[2020-07-29] MEDS ORDERED: Dexamethasone 20 MG/5 ML VIAL ONE (10:45)
[2020-07-29] MEDS ORDERED: Midazolam HCl 2 mg/2 ml Vial ONE (11:05)
[2020-07-29] MEDS ORDERED: Fentanyl 100 MCG/2 ML VIAL ONE ×2 (11:12→12:43)
[2020-07-29] MEDS ORDERED: Famotidine/PF 20 mg/2ml Vial ONE (11:17)
[2020-07-29] MEDS ORDERED: Promethazine HCl 25 MG/ML VIAL IM PRN (12:09)
[2020-07-29] MEDS ORDERED: Ondansetron HCl/PF 4 MG/2 ML Vial IVP PRN (12:09)
[2020-07-29] MEDS ORDERED: Morphine Sulfate 2 MG/ML SYRINGE SLOW IVP PRN (12:09)
[2020-07-29] MEDS ORDERED: Promethazine HCl 25 MG/ML VIAL SLOW IVP PRN (12:09)
--- NOTE | 2020-07-29 12:18 | OP ---
DATE OF PROCEDURE: 07/29/2020 PROCEDURE PERFORMED: Irrigation and debridement of right knee septic bursa. PREOPERATIVE DIAGNOSIS: Septic right knee prepatellar bursa. POSTOPERATIVE DIAGNOSIS: Septic right knee prepatellar bursa. COMPLICATIONS: None. ESTIMATED BLOOD LOSS: Minimal. PLASTIC PARTS FABRICATOR TRIMMER: None. IMPLANTS: None. INDICATIONS: Ms. Kevin Brooks is a 55-year-old female, who has developed an infection over her right knee. She has been treated with intravenous antibiotics. She has had a previous knee aspirate, which showed streptococcal infection. She has failed to fully improve. She has been indicated for irrigation and debridement of the septic bursa. DESCRIPTION OF PROCEDURE: Ms. Brown was identified in the preoperative holding area. Her correct extremity was marked. She was carried to the operating room. She was positioned supine. General anesthesia was induced. A multidisciplinary time-out was performed. The right lower extremity was prepped and draped in sterile fashion. We began the procedure with an anterior incision over the prepatellar bursa. The patient had purulent drainage. This was cultured. We then marked more deeply down to the patella tendon level. There was no extension into the knee joint that we could identify. The patient had a deep debridement with a rongeur as well as curette down to the fascia level. We thoroughly irrigated with copious lavage. Again, we performed a final debridement. We closed the wound loosely and packed with iodoform gauze. A sterile dressing was applied. The patient was taken to the recovery room in good condition. Job ID: [id number]
--- NOTE | 2020-07-29 14:19 | PDOC.HOSPP ---
- Subjective Encounter Date: 07/29/20 Encounter Time: 09:00 Subjective: no new complaints, is npo for debridement today - Objective Vital Signs & Weight: Vital Signs (12 hours) Temp Pulse Resp BP BP Pulse Ox 07/29/20 09:50 98.1 F 76 16 116/74 94 L 07/29/20 08:00 98.1 F 75 18 111/66 94 L 07/29/20 04:57 98.2 F 80 18 116/82 93 L Weight Weight 143 lb 3.2 oz I&O: 07/28/20 07/29/20 07/30/20 06:59 06:59 06:59 Intake Total 480 1665 Balance 480 1665 Result Diagrams: 07/29/20 06:50 07/28/20 05:30 Hospitalist ROS - Medication Medications: Active Medications Generic Name Dose Route Start Last Admin Trade Name Freq PRN Reason Stop Dose Admin Hydrocodone Bitart/Acetaminophen 1 tab 07/26/20 16:09 07/29/20 04:32 Hydrocodone/Acetaminophen 10/325 Mg Tablet PO 1 tab Q6H PRN Administration Moderate Pain (4-6) Aspirin 81 mg 07/26/20 21:00 07/29/20 08:14 Aspirin 81 Mg Enteric Coated Tablet PO Not Given BID JOSE G Bupropion HCl 150 mg 07/26/20 21:00 07/29/20 08:16 Bupropion 150 Mg Sr Tab PO 150 mg BID JOSE G Administration Duloxetine HCl 60 mg 07/26/20 21:00 07/29/20 08:16 Duloxetine 60 Mg Cap PO 60 mg BID JOSE G Administration Enoxaparin Sodium 40 mg 07/27/20 09:00 07/29/20 08:14 Enoxaparin Sodium 40 Mg/0.4 Ml Syringe SC Not Given 09 JOSE G Famotidine 20 mg 07/26/20 21:00 07/29/20 08:16 Famotidine 20 Mg Tab PO 20 mg BID JOSE G Administration Cefazolin Sodium/Dextrose 2 gm 50 mls @ 100 mls/hr 07/28/20 14:00 07/29/20 05:12 / Device IVPB 50 mls Q8HR JOSE G Administration Methadone HCl 10 mg 07/26/20 21:00 07/29/20 08:16 Methadone Hcl 10 Mg Tab PO 10 mg TID JOSE G Administration Senna/Docusate Sodium 2 tab 07/26/20 16:09 07/29/20 08:16 Senokot S 8.6-50 Mg Tab PO 2 tab BIDPRN PRN Administration Constipation Sodium Chloride 10 ml 07/28/20 21:00 07/29/20 08:18 Flush - Normal Saline 10 Ml Syringe IVF 10 ml Q12HR JOSE G Administration - Exam General Appearance: awake alert Eye: PERRL, anicteric sclera ENT: no oropharyngeal lesions, moist mucosa Neck: supple, no JVD Heart: RRR, no murmur Respiratory: no wheezes, no rales Gastrointestinal: soft, non-tender, non-distended, normal bowel sounds Extremities - other findings: right infrapatellar area has swelling/tenderness, erythema Neurological: cranial nerve grossly intact, no focal deficits Psychiatric: normal affect, A&O x 3 Hosp A/P (1) Prepatellar bursitis Code(s): M70.40 - PREPATELLAR BURSITIS, UNSPECIFIED KNEE Status: Acute Qualifiers: Laterality: right Qualified Code(s): M70.41 - Prepatellar bursitis, right knee (2) Sepsis Code(s): A41.9 - SEPSIS, UNSPECIFIED ORGANISM Status: Resolved (3) Chronic pain Code(s): G89.29 - OTHER CHRONIC PAIN Status: Chronic Qualifiers: Chronic pain type: chronic pain syndrome Qualified Code(s): G89.4 - Chronic pain syndrome (4) History of hypertension Code(s): Z86.79 - PERSONAL HISTORY OF OTHER DISEASES OF THE CIRCULATORY SYSTEM Status: Chronic (5) Mood disorder Code(s): F39 - UNSPECIFIED MOOD [AFFECTIVE] DISORDER Status: Chronic - Plan is s/p I&D of right prepatellar bursa is growing strep G, currently on cefepime and vanc, for keflex on dc likely dc plan in am continue home meds, methadone tid, wellbutryn, cymbalta, remeron, asp bid and nebs blood and urine cultures are -ve hemostable
[2020-07-29 18:43] VITALS: BP 109/68; TEMP 97.9
--- NOTE | 2020-07-30 15:31 | EKG ---
Test Reason : Blood Pressure : / mmHG Vent. Rate : 075 BPM Atrial Rate : 075 BPM P-R Int : 172 ms QRS Dur : 088 ms QT Int : 402 ms P-R-T Axes : 063 012 050 degrees QTc Int : 448 ms Normal sinus rhythm Cannot rule out Anterior infarct , age undetermined Abnormal ECG Confirmed by FRANCESCO HUGHES ([id number]), social media editor RAMY LINCOLN ([id number]) on 07/30/2020 3:31:32 PM Referred By: Confirmed By:FRANCESCO Lozano
--- NOTE | 2020-07-30 16:43 | DIS ---
DATE OF ADMISSION: 07/26/2020 DATE OF DISCHARGE: 07/29/2020 DISCHARGE DISPOSITION: Home. PRIMARY DISCHARGE DIAGNOSIS: Right knee prepatellar bursitis with sepsis, resolving. SECONDARY DISCHARGE DIAGNOSES: History of chronic pain syndrome, hypertension, mood disorder, prior back surgeries. PROCEDURES DONE DURING HOSPITALIZATION: Left hip two-view x-ray done showed no acute osseous abnormality. The patient has had irrigation and debridement of right knee prepatellar bursa. This was done on 07/29/2020. Right knee bursa cultures have grown Streptococcus group G resistant to clindamycin and erythromycin, but sensitive to all other antibiotics. Blood cultures x2, no growth. Had a white count of 18 on the day of admission with discharge numbers of 8, H and H of 9 and 29, platelet count 335. Sedimentation rate was 88. CRP 21. DISCHARGE MEDICATIONS: 1. Keflex 500 mg 4 times daily for 10 days. 2. Bronson p.r.n. for pain. 3. Wellbutrin sustained release 150 mg twice daily. 4. Naprosyn p.r.n. 5. Mirtazapine 15 mg p.o. daily p.r.n. 6. Methadone 10 mg 3 times daily. 7. Duloxetine 60 mg twice daily. 8. Combivent inhaler 4 times daily p.r.n. ALLERGIES: TO PENICILLIN. DISCHARGE PLAN: The patient to follow up with Dr. Duarte in 2 weeks. She needs to follow up with her primary care physician in 1 week. BRIEF COURSE DURING HOSPITALIZATION: The patient initially got admitted on the July 26 with complaints of fever. The patient also had left hip replacement done 2 weeks back and has had x-ray done for the same. She had postop changes seen there. She was evaluated by Dr. Duarte for the same. She also had right knee pain, swelling, and erythema. She had initial aspiration of the prepatellar bursa, which showed purulent material. In view of this, she has had irrigation and debridement of the prepatellar bursa done by Dr. Duarte. Her cultures grew group G Streptococcus sensitive to penicillins and cephalosporins. The patient is allergic to penicillin and was given prescription for Keflex for 10 days. Prior to discharge, she was ambulating. She is hemodynamically stable and is wanting to go home. She was given instructions to do dressing changes for the debridement site at the prepatellar bursa on the right knee. She is hemodynamically stable and will be shortly discharged home. Please see a [id number] documentation for the day of discharge on [employer]. Job ID: [id number]
--- NOTE | 2020-08-01 05:36 | PQF ---
CLINICAL DOCUMENTATION CLARIFICATION FORM: Dear : Kalyani Turner Date / Time: 08/01/2020 05:35 Please exercise your independent, professional judgment in responding to the clarification form. Clinical indicators are provided on the bottom of this form for your review Please check appropriate box(es): [ ] Sepsis as a complication or recent hip replacement [ x ] Sepsis not a complication or recent hip replacement [ ] Other diagnosis [ ] Unable to determine Physician Signature: Date/Time: For continuity of documentation, please document condition throughout progress notes and discharge summary. Thank You. To be completed by CDI/Coding staff for physician review: Present Clinical Indicators - Signs / Symptoms / Labs Results and Location in Medical Record [x] Sepsis secondary to left hip replacement associated infection vs right prepatellar infection PN 07/27 [x] Hip Xray: fluid collection lateral and anterior to the femoral head component...This may be related to infection Hip Xray 07/26 [x] concern for infected left hip prosthesis Consult 07/26 [x] Recent left hip replacement with now fever leukocytosis Consult 07/26 [x] Temp=98.5 Pulse=91 Respi=18 BP=91/61 Vital Signs 07/26 [x] WBC=18.1 Lactic=1.3 Laboratory 07/26 [x] Blood culture: no growth in 5days 07/26 Collected [x] Bursa culture: Strep group g 07/26 Collected Present Risk Factors Results and Location in Medical Record [x] s/p hip replacement Consult 07/26 [x] UTI HP 07/26 [x] Prepatellar bursitis HP 07/26 Present Treatments Results and Location in Medical Record [x] Hip Xray Hip Xray 07/26 [x] Cefepime 2gm IV MAR 07/26 [x] Vancomycin 1gm IV DEC 01 [x] Ancef 2gm IV DEC 01 [x] ID consult Consult 07/26 [x] Orthopedic consult Consult 07/26 CDS/Customer Care Assistant Signature: Escobar Dent Phone #: [phone] Date/Time: 08/01/20 05:35 This is a permanent part of the Medical Record [facility]
--- NOTE | 2020-08-01 05:38 | PQF ---
CLINICAL DOCUMENTATION CLARIFICATION FORM: Dear : Kalyani Turner Date / Time: 08/01/2020 05:38 Please exercise your independent, professional judgment in responding to the clarification form. Clinical indicators are provided on the bottom of this form for your review Can you please clarify the diagnosis being treated? Please check appropriate box(es): [ ] Associated Diagnosis: Acute HI [ x] Not clinically significant laboratory findings [ ] Other diagnosis [ ] Unable to determine Physician Signature: Date/Time: For continuity of documentation, please document condition throughout progress notes and discharge summary. Thank You. To be completed by CDI/Coding staff for physician review: Present Clinical Indicators - Signs / Symptoms / Labs Results and Location in Medical Record [x] EKG: Cannot rule out anterior infarct, age undetermined EKG 07/30 [x] EKG: ST segment normal and T wave normal ED Notes 07/26 [x] No chest pain no palpitation HP 07/26 Present Risk Factors Results and Location in Medical Record [x] 55 years old female HP 07/26 [x] Sepsis HP 07/26 [x] MARIANN HP 07/26 Present Treatments Results and Location in Medical Record [x] EKG EKG 07/30 [x] IVF MAR 07/26 [x] Laboratory monitoring Collected 07/26 CDS/Purler Signature:Escobar Dent Phone #: [phone] Date/Time: 08/01/2020 05:38 This is a permanent part of the Medical Record [facility]
--- NOTE | 2020-08-01 05:42 | PQF ---
CLINICAL DOCUMENTATION CLARIFICATION FORM: Dear : Justo Duarte Date / Time: 08/01/20 05:45 Please exercise your independent, professional judgment in responding to the clarification form. Clinical indicators are provided on the bottom of this form for your review Can you please specify the type and depth of patients debridement? Please check appropriate box(es): [ x ] Excisional Debridement: [x ] Excised [ ] Cut away [ ] Other: Depth / layer: (deepest layer of debridement): [ ] Skin [ ] Subcutaneous [ x ] Fascia [ ] Muscle [ ] Tendon [ ] Bone Appearance of wound: (e.g., down to fresh bleeding tissue, etc.) Margins: (please specify): / x x Instruments used: [ ] Scissors [ ] Scalpel [ ] Other: [ ] Non-excisional Debridement: (Removal by ?ushing, brushing, chemical, or washing) Depth / layer: (deepest layer of debridement): [ ] Skin [ ] Subcutaneous [ ] Fascia [ ] Muscle [ ] Tendon [ ] Bone [ ] Incision and Drainage only (No Debridement): Depth: [ ] Skin [ ] Subcutaneous [ ] Fascia [ ] Muscle [ ] Tendon [ ] Bone [ ] Other procedure diagnosis [ ] Unable to determine Physician Signature: Date/Time: For continuity of documentation, please document condition throughout progress notes and discharge summary. Thank You. To be completed by CDI/Coding staff for physician review: Present Clinical Indicators - Signs / Symptoms / Labs Results and Location in Medical Record [x] Irrigation and debridement of right knee septic bursa OP Note 07/29 [x] anterior incision over the prepatellar bursa. The patient has purulent drainage OP Note 07/29 [x] We then market more deeply down to the patella tendon level OP Note 07/29 [x] The patient has a deep debridement with a rongeur as well as curette down to the fascia level OP Note 11/06 [x] we thoroughlt irrigated with copious lavage..we performed a final debridement OP Note 07/29 Present Risk Factors Results and Location in Medical Record [x] s/p hip replacement Consult 07/26 [x] Prepatellar bursitis HP 07/26 [x] Sepsis PN 07/27 Present Treatments Results and Location in Medical Record [x] Hip Xray Hip Xray 07/26 [x] Cefepime 2gm IV DEC 01 [x] Vancomycin 1gm IV DEC 01 [x] Ancef 2gm IV DEC 01 [x] ID consult Consult 07/26 [x] Orthopedic consult Consult 07/26 [x] Debridement and incision/drainage OP Note 07/29 CDS/Flying Squad Salesperson Signature: Escobar Dent Phone #: [phone] Date/Time: 08/01/2020 This is a permanent part of the Medical Record [facility]
[2020-08-01 15:38] LABS: Fungus Stain Final report (.)
== END 2020-07-29 18:29 | disposition home or self-care (01) | DRG 854 ==
LOC: ERS 07:15 → T4-A 16:00
PROVIDERS: ADMIT Emergency Medicine; ATTEND Emergency Medicine
PROC: 0JBN0ZZ Excision of Right Lower Leg Subcutaneous Tissue and Fascia, Open Approach (ICD-10-PCS; principal; 2020-07-29)
PROC: 0J9N0ZZ Drainage of Right Lower Leg Subcutaneous Tissue and Fascia, Open Approach (ICD-10-PCS; 2020-07-29)
DX: A41.9 Sepsis, unspecified organism (principal); N39.0 Urinary tract infection, site not specified; N17.9 Acute kidney failure, unspecified; Z96.642 Presence of left artificial hip joint; F32.9 Major depressive disorder, single episode, unspecified; G89.4 Chronic pain syndrome; I10 Essential (primary) hypertension; F41.9 Anxiety disorder, unspecified; M70.41 Prepatellar bursitis, right knee; J44.9 Chronic obstructive pulmonary disease, unspecified; Z87.891 Personal history of nicotine dependence; B95.4 Other streptococcus as the cause of diseases classified elsewhere; Z90.49 Acquired absence of other specified parts of digestive tract; Z90.710 Acquired absence of both cervix and uterus; Z88.0 Allergy status to penicillin; Z79.82 Long term (current) use of aspirin; Z79.51 Long term (current) use of inhaled steroids; Z98.1 Arthrodesis status; Z87.01 Personal history of pneumonia (recurrent)
CPT/HCPCS: 36415; 80048; 80053; 81003; 81015; 83605; 83690; 83735; 85025; 85652; 86140; 87040; 87070; 87077; 87086; 87102; 87186; 87205; 87206; 93005; J0690; J0692; J0780; J1100; J1650; J2250; J2405; J2704; J3010; J3370; J3490; J7050; S0028